=== PATIENT | male | born 1965 | race Hispanic/Latino ===

== ENCOUNTER → 2020-11-03 | Outpatient (CLI) | payer OTHER ==
[~2020-11-03] MED LIST: ACET1TAB12 PO; AMLO5TAB4 PO; ASPI-1197 PO; FERS325 PO; HUM10VIA SQ; HYDR25 PO; HYDR25TA PO; LISI40TA4 PO
== END | disposition home or self-care (01) ==
LOC: OIH 13:17
PROVIDERS: ATTEND Internal Medicine
DX: I10 Essential (primary) hypertension (principal); M51.35 Other intervertebral disc degeneration, thoracolumbar region
CPT/HCPCS: 71046

== ENCOUNTER 2021-02-21 14:55 | Inpatient (IN) | payer OTHER ==
[~2021-02-21] VITALS: Ht 175.3 cm; Wt 93.0 kg
[~2021-02-21 14:55] MED LIST changes: -LISI40TA4 PO; +LISI40TA9 PO
[2021-02-21 16:20] LABS: BASOPHILS % (AUTO) 0.4 % (0.0-5.0); EOSINOPHILS % (AUTO) 2.1 % (0.0-8.0); HEMATOCRIT 38.9 % (42-54); LYMPHOCYTES % (AUTO) 20.5 % (21.0-51.0); MEAN CORPUSCULAR HEMOGLOBIN 25.3 pg (27.0-33.0); MEAN CORPUSCULAR HGB CONC 32.9 g/dL (32.0-36.0); MONOCYTES % (AUTO) 10.3 % (3.0-13.0); NEUTROPHILS % (AUTO) 66.4 % (40.0-77.0); PLATELET COUNT (AUTO) 274 K/uL (130-400); RED BLOOD CELL COUNT(AUTO) 5.05 MIL/uL (4.50-6.20); WHITE BLOOD COUNT (AUTO) 7.6 K/uL (4.8-10.8)
[2021-02-21 16:34] LABS: CREATININE 1.6 mg/dL (0.5-1.5); POTASSIUM 3.5 mmol/L (3.5-5.1)
[2021-02-21 16:38] LABS: ALBUMIN 3.4 g/dL (3.5-5.0); BILIRUBIN,TOTAL 0.4 mg/dL (0.2-1.0); CRP QUANTITATIVE 166.6 mg/L (0.00-9.0); TOTAL PROTEIN, SERUM 9.3 g/dL (6.0-8.3)
[2021-02-21 16:47] LABS: APPEARANCE,URINE Clear (CLEAR); BILIRUBIN,URINE Negative (NEGATIVE); COLOR,URINE Yellow (YELLOW); GLUCOSE, URINE (UA) >=1000 mg/dL (NEGATIVE); KETONES,URINE Negative (NEGATIVE); LEUKOCYTE ESTERASE ,URINE Negative (NEGATIVE); NITRATE,URINE Negative (NEGATIVE); OCCULT BLOOD,URINE Negative (NEGATIVE); PROTEIN,URINE POS 2+ mg/dL (NEGATIVE)
[2021-02-21] MEDS ORDERED: ZOSYN 3.375GM+NS 50ML 50 ML IV ONE (16:52)
[2021-02-21] MEDS ORDERED: 1/2 NORMAL SALINE 1,000 ML IV ONE (16:54)
[2021-02-21 17:00] LABS: BACTERIA,URINE Rare /HPF (None Seen); RBC,URINE 0-1 /HPF (0-1); SQUAMOUS EPITHELIAL CELL,UR Rare /HPF (0-2); WBC,URINE 0-1 /HPF (0-1)
[2021-02-21 17:28] LABS: ERYTHROCYTE SEDIMENTATION RATE 78 MM/HR (0-20)
[2021-02-21] MEDS ORDERED: VANCOMYCIN PROTOCOL PER PHARMACY IV SCH (19:45)
[2021-02-21] MEDS ORDERED: COMPOUND IV REFRIGERATED 1 EACH IVSOLN MISC PRN (19:45)
[2021-02-21] MEDS: VANCOMYCIN 1.5 GM in SODIUM CHLORIDE 0.9% 250 ML IV SCH (20:00)
[2021-02-21] MEDS ORDERED: HYDROMORPHONE HCL 0.5 MG/0.5 ML ML IVP PRN (20:15)
[2021-02-21] MEDS ORDERED: ONDANSETRON HCL 4 MG/2 ML VIAL IVP PRN (20:15)
[2021-02-21] MEDS: 1/2 NORMAL SALINE 1,000 ML IV SCH (20:15)
[2021-02-21] MEDS ORDERED: NITROGLYCERIN 0.4 MG SL TAB SL PRN (20:15)
[2021-02-21] MEDS ORDERED: DEXTROSE 50%-WATER 50 ML DISP.SYRIN IV PRN (20:15)
[2021-02-21] MEDS ORDERED: LACTULOSE 20 GM/30 ML UDCUP PO PRN (20:15)
[2021-02-21] MEDS ORDERED: GLUCAGON 1MG KIT 1 MG ML IM PRN (20:15)
[2021-02-21] MEDS: INSULIN R PO SSI SQ SCH (21:00)
[2021-02-21 22:46] VITALS: BP 158/80
[2021-02-21] MEDS ORDERED: AMLO-257 PO (23:21)
[2021-02-21] MEDS ORDERED: ATOR20TA65 PO (23:21)
[2021-02-21] MEDS ORDERED: GLIM4TAB36 PO (23:21)
[2021-02-21] MEDS ORDERED: METO-408 PO (23:21)
[2021-02-21] MEDS ORDERED: HYDR25TA PO (23:21)
[2021-02-21] MEDS ORDERED: METF-910 PO (23:21)
[2021-02-21] MEDS ORDERED: SIME125C81 PO (23:21)
[2021-02-21] MEDS ORDERED: MULT-1367 PO (23:21)
[2021-02-21] MEDS ORDERED: EMPA25TA PO (23:21)
[2021-02-21] MEDS ORDERED: LOPE2CAP PO (23:21)
[2021-02-22] MEDS: ZOSYN 3.375GM+NS 50ML 50 ML IV SCH ×3 (01:35→17:13)
[2021-02-22 04:02] VITALS: BP 169/85
[2021-02-22] MEDS: 1/2 NORMAL SALINE 1,000 ML IV SCH (05:40)
[2021-02-22 05:55] LABS: HEMATOCRIT 37.1 % (42-54); MEAN CORPUSCULAR HEMOGLOBIN 25.1 pg (27.0-33.0); MEAN CORPUSCULAR HGB CONC 32.1 g/dL (32.0-36.0); MEAN CORPUSCULAR VOLUME 78.3 fL (79-99); RED BLOOD CELL COUNT(AUTO) 4.74 MIL/uL (4.50-6.20); RED CELL DISTRIBUTION WIDTH 13.8 % (11.0-15.5); WHITE BLOOD COUNT (AUTO) 6.4 K/uL (4.8-10.8)
[2021-02-22 06:04] LABS: CREATININE 1.4 mg/dL (0.5-1.5); POTASSIUM 3.9 mmol/L (3.5-5.1)
[2021-02-22] MEDS: INSULIN R PO SSI SQ SCH ×4 (06:11→21:18)
[2021-02-22 07:53] VITALS: BP 149/79
[2021-02-22 11:13] VITALS: BP 150/80
[2021-02-22 16:29] VITALS: BP 143/81
[2021-02-22] MEDS: VANCOMYCIN 1.25 GM in SODIUM CHLORIDE 0.9% 250 ML IV SCH (17:14)
[2021-02-22] MEDS: VANCOMYCIN 1.5 GM in SODIUM CHLORIDE 0.9% 250 ML IV SCH (19:23)
[2021-02-22 19:59] VITALS: BP 144/69
[2021-02-22] MEDS: ATORVASTATIN CALCIUM 20 MG TABLET PO SCH (21:12)
[2021-02-22 23:07] VITALS: BP 148/84
[2021-02-23] MEDS: ZOSYN 3.375GM+NS 50ML 50 ML IV SCH ×2 (01:05→09:37)
[2021-02-23 03:58] VITALS: BP 147/84
[2021-02-23] MEDS: 1/2 NORMAL SALINE 1,000 ML IV SCH ×2 (04:58→21:20)
[2021-02-23 05:57] LABS: CREATININE 1.6 mg/dL (0.5-1.5); POTASSIUM 3.8 mmol/L (3.5-5.1)
[2021-02-23] MEDS: INSULIN R PO SSI SQ SCH ×3 (06:12→21:31)
[2021-02-23 08:00] VITALS: BP 148/90
[2021-02-23] MEDS: AMLODIPINE BESYLATE 5 MG TAB PO SCH (09:34)
[2021-02-23] MEDS: HYDROCHLOROTHIAZIDE 25 MG TABLET PO SCH (09:34)
[2021-02-23] MEDS: METOPROLOL SUCCINATE 50 MG TAB.SR.24H PO SCH (09:35)
[2021-02-23] MEDS: VANCOMYCIN 1.25 GM in SODIUM CHLORIDE 0.9% 250 ML IV SCH (09:38)
[2021-02-23 13:00] VITALS: BP 142/84
[2021-02-23 18:02] VITALS: BP 158/96
[2021-02-23 19:05] VITALS: BP 153/93
[2021-02-23] MEDS: ATORVASTATIN CALCIUM 20 MG TABLET PO SCH (21:19)
[2021-02-23 23:45] VITALS: BP 154/91
[2021-02-24] VITALS (12 sets, daily range): BP systolic 133–182; BP diastolic 78–99
[2021-02-24] MEDS: ZOSYN 3.375GM+NS 50ML 50 ML IV SCH ×3 (01:44→17:00)
[2021-02-24] MEDS: VANCOMYCIN 1.25 GM in SODIUM CHLORIDE 0.9% 250 ML IV SCH (04:08)
[2021-02-24] MEDS: INSULIN R PO SSI SQ SCH ×4 (07:03→20:17)
[2021-02-24] MEDS: HYDROCHLOROTHIAZIDE 25 MG TABLET PO SCH (09:05)
[2021-02-24] MEDS: AMLODIPINE BESYLATE 5 MG TAB PO SCH (09:05)
[2021-02-24] MEDS: METOPROLOL SUCCINATE 50 MG TAB.SR.24H PO SCH (09:05)
[2021-02-24 14:41] LABS: PROTHROMBIN TIME 10.9 SEC (9.6-11.6)
[2021-02-24 14:42] LABS: PARTIAL THROMBOPLASTIN TIME 25.6 SEC (26.3-35.5)
[2021-02-24] MEDS: 1/2 NORMAL SALINE 1,000 ML IV SCH (16:43)
[2021-02-24] MEDS ORDERED: SODIUM BICARB 50MEQ 50ML VIAL 50 ML ONE (17:32)
[2021-02-24] MEDS ORDERED: IODIXANOL 320 MG/ML 100 ML VIAL ONE (17:33)
[2021-02-24] MEDS ORDERED: MIDAZOLAM HCL 1 MG/ML 2ML VIAL ONE (17:33)
[2021-02-24] MEDS ORDERED: LIDOCAINE HCL 2% 20ML ONE (17:33)
[2021-02-24] MEDS ORDERED: NITROGLYCERIN 2 MG/VIAL VIAL IV ONE (17:33)
[2021-02-24] MEDS ORDERED: HEPARIN SODIUM 1000UNIT/ML 10ML VIAL ONE (17:33)
[2021-02-24] MEDS ORDERED: FENTANYL CITRATE PF 50 MCG/1 ML 2ML VIAL ONE (18:02)
[2021-02-24] MEDS ORDERED: LABETALOL HCL 5 MG/ML 20ML VIAL IV ONE (18:11)
[2021-02-24] MEDS ORDERED: CLOPIDOGREL BISULFATE 300 MG TAB ONE (19:07)
[2021-02-24] MEDS ORDERED: ASPIRIN 325MG EC TAB 325 MG TABLET.DR PO ONE (19:07)
[2021-02-24] MEDS ORDERED: VANCOMYCIN 1GM+NS 250ML 250 ML IV ONE (19:55)
[2021-02-24] MEDS: SODIUM CHLORIDE 0.9% 1000ML 1,000 ML IV SCH (19:59)
[2021-02-24] MEDS: VANCOMYCIN 1GM+NS 250ML 250 ML IV SCH (19:59)
[2021-02-24] MEDS: ATORVASTATIN CALCIUM 20 MG TABLET PO SCH (20:16)
[2021-02-24] MEDS: CLONIDINE HCL 0.1 MG TABLET PO PRN (21:57)
[2021-02-25] VITALS (18 sets, daily range): BP systolic 94–180; BP diastolic 53–101
[2021-02-25] MEDS: ZOSYN 3.375GM+NS 50ML 50 ML IV SCH ×3 (00:56→17:07)
[2021-02-25 05:28] LABS: HEMATOCRIT 37.3 % (42-54); MEAN CORPUSCULAR HEMOGLOBIN 24.8 pg (27.0-33.0); MEAN CORPUSCULAR HGB CONC 31.1 g/dL (32.0-36.0); MEAN CORPUSCULAR VOLUME 79.9 fL (79-99); PLATELET COUNT (AUTO) 299 K/uL (130-400); RED BLOOD CELL COUNT(AUTO) 4.67 MIL/uL (4.50-6.20); WHITE BLOOD COUNT (AUTO) 7.6 K/uL (4.8-10.8)
[2021-02-25 05:41] LABS: CREATININE 1.6 mg/dL (0.5-1.5); POTASSIUM 3.9 mmol/L (3.5-5.1)
[2021-02-25] MEDS: INSULIN R PO SSI SQ SCH ×4 (06:32→21:00)
[2021-02-25] MEDS: HYDROCHLOROTHIAZIDE 25 MG TABLET PO SCH (08:38)
[2021-02-25] MEDS: AMLODIPINE BESYLATE 5 MG TAB PO SCH (08:38)
[2021-02-25] MEDS: VANCOMYCIN 1GM+NS 250ML 250 ML IV SCH ×2 (08:38→22:03)
[2021-02-25] MEDS: METOPROLOL SUCCINATE 50 MG TAB.SR.24H PO SCH (08:39)
[2021-02-25] MEDS ORDERED: CLOP75TA32 PO (17:54)
[2021-02-25] MEDS ORDERED: AEC81 PO (17:54)
[2021-02-25] MEDS ORDERED: FENTANYL CITRATE PF 50 MCG/1 ML 2ML VIAL ONE ×3 (19:20→20:47)
[2021-02-25] MEDS ORDERED: MIDAZOLAM HCL 1 MG/ML 2ML VIAL ONE (19:20)
[2021-02-25] MEDS ORDERED: PROPOFOL 10 MG/ML 20ML VIAL IV ONE ×3 (19:20→20:31)
[2021-02-25] MEDS ORDERED: LIDOCAINE HCL 1% 20 ML VIAL ONE (19:38)
[2021-02-25] MEDS ORDERED: BUPIVACAINE/PF 0.5% 30ML VIAL ONE (19:38)
[2021-02-25] MEDS ORDERED: ONDANSETRON HCL 4 MG/2 ML VIAL ONE (19:57)
[2021-02-25] MEDS: SODIUM CHLORIDE 0.9% 1000ML 1,000 ML IV SCH (20:58)
[2021-02-25] MEDS ORDERED: MORPHINE SULFATE 2 MG/ML 1ML SYG IVP PRN (22:00)
[2021-02-25] MEDS ORDERED: HYDROMORPHONE HCL 0.5 MG/0.5 ML ML IVP PRN (22:00)
[2021-02-25] MEDS: ASPIRIN 81MG TAB.CHEW PO SCH (22:02)
[2021-02-25] MEDS: ATORVASTATIN CALCIUM 20 MG TABLET PO SCH (22:03)
[2021-02-25] MEDS: CLOPIDOGREL BISULFATE 75 MG TAB PO SCH (22:03)
[2021-02-25] MEDS: CLONIDINE HCL 0.1 MG TABLET PO PRN (22:45)
[2021-02-26] MEDS: ZOSYN 3.375GM+NS 50ML 50 ML IV SCH ×3 (00:21→17:19)
[2021-02-26 00:30] VITALS: BP 142/77
[2021-02-26 03:46] VITALS: BP 153/77
[2021-02-26] MEDS: INSULIN R PO SSI SQ SCH ×4 (05:54→20:54)
[2021-02-26 07:54] VITALS: BP 160/85
[2021-02-26] MEDS: ASPIRIN 81MG TAB.CHEW PO SCH (08:41)
[2021-02-26] MEDS: HYDROCHLOROTHIAZIDE 25 MG TABLET PO SCH (08:42)
[2021-02-26] MEDS: CLOPIDOGREL BISULFATE 75 MG TAB PO SCH (08:42)
[2021-02-26] MEDS: METOPROLOL SUCCINATE 50 MG TAB.SR.24H PO SCH (08:42)
[2021-02-26] MEDS: AMLODIPINE BESYLATE 5 MG TAB PO SCH (08:42)
[2021-02-26] MEDS: VANCOMYCIN 1GM+NS 250ML 250 ML IV SCH ×2 (09:00→20:43)
[2021-02-26 11:14] VITALS: BP 154/79
[2021-02-26 16:22] VITALS: BP 147/82
[2021-02-26 20:00] VITALS: BP 156/84
[2021-02-26] MEDS: ATORVASTATIN CALCIUM 20 MG TABLET PO SCH (20:43)
[2021-02-27] VITALS (7 sets, daily range): BP systolic 136–159; BP diastolic 75–89
[2021-02-27] MEDS: ZOSYN 3.375GM+NS 50ML 50 ML IV SCH ×3 (00:25→17:38)
[2021-02-27] MEDS: INSULIN R PO SSI SQ SCH ×4 (06:00→21:37)
[2021-02-27] MEDS: VANCOMYCIN 1GM+NS 250ML 250 ML IV SCH ×2 (08:43→21:36)
[2021-02-27] MEDS: ASPIRIN 81MG TAB.CHEW PO SCH (08:44)
[2021-02-27] MEDS: AMLODIPINE BESYLATE 5 MG TAB PO SCH (08:44)
[2021-02-27] MEDS: CLOPIDOGREL BISULFATE 75 MG TAB PO SCH (08:44)
[2021-02-27] MEDS: METOPROLOL SUCCINATE 50 MG TAB.SR.24H PO SCH (08:44)
[2021-02-27] MEDS: HYDROCHLOROTHIAZIDE 25 MG TABLET PO SCH (08:44)
[2021-02-27] MEDS ORDERED: SODIUM CHLORIDE 0.9% 250 ML IV ONE (20:03)
[2021-02-27] MEDS: ATORVASTATIN CALCIUM 20 MG TABLET PO SCH (21:36)
[2021-02-28] MEDS: ZOSYN 3.375GM+NS 50ML 50 ML IV SCH ×2 (01:10→09:11)
[2021-02-28 03:56] VITALS: BP 163/92
[2021-02-28] MEDS: INSULIN R PO SSI SQ SCH ×2 (05:45→11:48)
[2021-02-28 07:30] VITALS: BP 140/86
[2021-02-28] MEDS: VANCOMYCIN 1GM+NS 250ML 250 ML IV SCH (09:00)
[2021-02-28] MEDS: ASPIRIN 81MG TAB.CHEW PO SCH (09:11)
[2021-02-28] MEDS: AMLODIPINE BESYLATE 5 MG TAB PO SCH (09:11)
[2021-02-28] MEDS: HYDROCHLOROTHIAZIDE 25 MG TABLET PO SCH (09:11)
[2021-02-28] MEDS: METOPROLOL SUCCINATE 50 MG TAB.SR.24H PO SCH (09:12)
[2021-02-28] MEDS: CLOPIDOGREL BISULFATE 75 MG TAB PO SCH (09:12)
[2021-02-28 11:00] VITALS: BP 182/95
== END 2021-02-28 17:35 | disposition home health service (06) | DRG 271 ==
LOC: EDH 14:55 → OBSVTOIN 15:14 → EDHIP 15:14 → 3BH 20:44
PROVIDERS: ADMIT Internal Medicine; ATTEND Internal Medicine
PROC: 0QBR0ZZ Excision of Left Toe Phalanx, Open Approach (ICD-10-PCS; 2021-02-23)
PROC: 04CQ3ZZ Extirpation of Matter from Left Anterior Tibial Artery, Percutaneous Approach (ICD-10-PCS; principal; 2021-02-24)
PROC: 047L3Z1 Dilation of Left Femoral Artery using Drug-Coated Balloon, Percutaneous Approach (ICD-10-PCS; 2021-02-24)
PROC: B41G1ZZ Fluoroscopy of Left Lower Extremity Arteries using Low Osmolar Contrast (ICD-10-PCS; 2021-02-24)
PROC: 0Y6N0ZC Detachment at Left Foot, Partial 3rd Ray, Open Approach (ICD-10-PCS; 2021-02-25)
DX: E11.52 Type 2 diabetes mellitus with diabetic peripheral angiopathy with gangrene (principal); L03.116 Cellulitis of left lower limb; L02.612 Cutaneous abscess of left foot; M00.9 Pyogenic arthritis, unspecified; M86.8X7 Other osteomyelitis, ankle and foot; I96 Gangrene, not elsewhere classified; E11.69 Type 2 diabetes mellitus with other specified complication; S91.115A Laceration without foreign body of left lesser toe(s) without damage to nail, initial encounter; E78.5 Hyperlipidemia, unspecified; I12.9 Hypertensive chronic kidney disease with stage 1 through stage 4 chronic kidney disease, or unspecified chronic kidney disease; E11.22 Type 2 diabetes mellitus with diabetic chronic kidney disease; E11.42 Type 2 diabetes mellitus with diabetic polyneuropathy; E11.621 Type 2 diabetes mellitus with foot ulcer; I25.10 Atherosclerotic heart disease of native coronary artery without angina pectoris; L97.529 Non-pressure chronic ulcer of other part of left foot with unspecified severity; N18.30 Chronic kidney disease, stage 3 unspecified; Z79.84 Long term (current) use of oral hypoglycemic drugs; Z79.899 Other long term (current) drug therapy; Z89.511 Acquired absence of right leg below knee; Z88.8 Allergy status to other drugs, medicaments and biological substances; Z83.3 Family history of diabetes mellitus; Y93.89 Activity, other specified; Y92.89 Other specified places as the place of occurrence of the external cause; Y99.8 Other external cause status
CPT/HCPCS: 36415; 37224; 37229; 71046; 73630; 73718; 75710; 80048; 80053; 80202; 81001; 82948; 83605; 85025; 85027; 85610; 85651; 85730; 86140; 87040; 87070; 87076; 87077; 87186; 87205; 93005; 93926; 99156; 99157; C1760; C1893; C1894; C2623; G0378; J1170; J1644; J1815; J2250; J2405; J2543; J2704; J3010; J3370; J3490; J7030; J7050; Q9967